=== PATIENT | male | born 1960 | race Two or more races ===

== ENCOUNTER 2022-02-19 14:58 | Emergency (ER) | payer OTHER ==
[~2022-02-19] VITALS: Ht 167.6 cm; Wt 71.7 kg
[2022-02-19] MEDS ORDERED: CATAFLAN (15:37)
== END 2022-02-19 17:52 | disposition home or self-care (01) ==
LOC: ER 14:58
DX: S90.02XA Contusion of left ankle, initial encounter (principal); X58.XXXA Exposure to other specified factors, initial encounter; Y93.89 Activity, other specified; Y92.89 Other specified places as the place of occurrence of the external cause; Y99.9 Unspecified external cause status